=== PATIENT | female | born 1980 | race Caucasian/White ===

== ENCOUNTER 2018-09-22 06:46 | Emergency (ER) | payer MEDICAID, OTHER ==
[~2018-09-22] VITALS: Ht 157.5 cm; Wt 81.8 kg
[~2018-09-22 06:46] MED LIST: ATOM40 PO; BUPR200T2 PO; DIVA-78 PO; FERR-89 PO; LURA40 PO; MVITFE PO
[2018-09-22 07:55] VITALS: BP 124/80
== END 2018-09-22 08:05 | disposition home or self-care (01) ==
LOC: EMS 06:49
DX: J02.9 Acute pharyngitis, unspecified (principal); B30.8 Other viral conjunctivitis; F17.210 Nicotine dependence, cigarettes, uncomplicated
CPT/HCPCS: 99406